=== PATIENT | female | born 1970 | race Caucasian/White ===

== ENCOUNTER 2018-08-03 16:57 | Emergency (ER) | payer OTHER ==
[2018-08-03 17:05] VITALS: BP 154/78
--- NOTE | 2018-08-03 17:07 | UC ---
Skin Complaint HPI - HPI Summary HPI Summary: 48 yo female presents accompanied by her sister with complaints of a tick bite to her right side. Pt noticed tick this morning in the shower. Thinks she got it yesterday because she was working outside a lot yesterday. She removed the tick at home. She has not symptoms at this time, but is concerned about lyme disease. - History of Current Complaint Chief Complaint: UCSkin Time Seen by Provider: 08/03/18 17:07 Stated Complaint: SKIN COMPLAINT Hx Obtained From: Patient Onset/Duration: Sudden Onset Current Severity: None Pain Intensity: 0 - Allergy/Home Medications Allergies/Adverse Reactions: Allergies Allergy/AdvReac Type Severity Reaction Status Date / Time No Known Allergies Allergy Verified 08/03/18 17:05 Home Medications: Home Medications Losartan/Hydrochlorothiazide [Losartan-Hctz 50-12.5 mg Tab] 1 tab PO DAILY 08/03 [History Confirmed 08/03/18] Metoprolol Tartrate TAB* [Lopressor TAB*] 50 mg PO DAILY 08/03/18 [History Confirmed 08/03/18] PMH/Surg Hx/FS Hx/Imm Hx Cardiovascular History: Hypertension - Surgical History Surgical History: Yes Surgery Procedure, Year, and Place: Hysterectomy - Family History Known Family History: Positive: None - Social History Lives: With Family Alcohol Use: None Substance Use Type: None Smoking Status (MU): Never Smoked Tobacco Review of Systems All Other Systems Reviewed And Are Negative: Yes Constitutional: Positive: Negative Skin: Positive: Other - Tick bite right side Respiratory: Positive: Negative Cardiovascular: Positive: Negative Neurovascular: Positive: Negative Neurological: Positive: Negative Psychological: Positive: Negative Physical Exam - Summary Physical Exam Summary: GENERAL: NAD. WDWN. No pain distress. SKIN: RIGHT side: there is a 7mm diameter of mild erythema and edema with central 1mm area of superficial skin loss. No streaking, bleeding, or drainage. NECK: Supple. Nontender. No lymphadenopathy. CHEST: No accessory muscle use. Breathing comfortably and in no distress. CV: Pulses intact. Cap refill <2seconds NEURO: Alert. PSYCH: Age appropriate behavior. Triage Information Reviewed: Yes Vital Signs: Initial Vital Signs Temp 98.7 F 08/03/18 17:01 Pulse 74 08/03/18 17:01 Resp 18 08/03/18 17:01 BP 154/78 08/03/18 17:01 Pulse Ox 100 08/03/18 17:01 Vital Signs Reviewed: Yes Course/Dx - Course Course Of Treatment: Tick removed at home. Pt given 200mg doxycycline in the clinic and advised to monitor for EM rash or signs/symptoms of lyme disease. - Diagnoses Provider Diagnosis: Tick bite Discharge - Sign-Out/Discharge Documenting (check all that apply): Patient Departure All imaging exams completed and their final reports reviewed: No Studies - Discharge Plan Condition: Stable Disposition: HOME Patient Education Materials: Tick Bite (ED) Referrals: Jasmin Vidal MD [Primary Care Provider] - Additional Instructions: If you develop a fever, shortness of breath, chest pain, new or worsening symptoms - please call your PCP or go to the ED. Your blood pressure was slightly elevated at todays visit. Please see your primary provider within 4 weeks for recheck and re-evaluation. TICK BITE: You have been bitten by a tick. Once the tick is removed, these "bites" usually cause no problems. Tick fever, tick paralysis, Helotes Spotted fever, and Lyme disease are uncommon -- but you should mention this tick bite to your doctor if you develop unusual symptoms in the next several weeks. If you develop any of the following, please see your physician promptly: (1) Fever, chills, or generalized malaise associated with a headache. (2) A red round area at the site of the bite (or elsewhere) (3) Joint pain, joint swelling or generalized weakness. (4) Redness, swelling, or drainage at the site of the bite. - Billing Disposition and Condition Condition: STABLE Disposition: Home
[2018-08-03] MEDS ORDERED: DOXYcycline CAP(*) 100 MG PO ONE (17:15)
== END 2018-08-03 17:38 | disposition home or self-care (01) ==
LOC: UCEAST 16:57
DX: S30.861A Insect bite (nonvenomous) of abdominal wall, initial encounter (principal); W57.XXXA Bitten or stung by nonvenomous insect and other nonvenomous arthropods, initial encounter; Y92.9 Unspecified place or not applicable; I10 Essential (primary) hypertension
CPT/HCPCS: 99202; A9270-GY; G0463